=== PATIENT | male | born 1995 ===

== ENCOUNTER 2016-08-20 18:57 | Emergency (ER) | payer BC ==
[2016-08-20 19:07] VITALS: BP 128/69; PULSE 83; RESP 18; TEMP 98.4; O2SAT 100
--- NOTE | 2016-08-20 19:19 | ED PDOC ---
Upper Extremity Pain/Injury Chief Complaint (Nursing): Upper Extremity Problem/Injury Chief Complaint (Provider): right shoulder pain History Per: Patient History/Exam Limitations: no limitations Onset/Duration Of Symptoms: Mins (prior to arrival) Current Symptoms Are (Timing): Still Present Additional Complaint(s): Jamie Yang is a 20 year old male who presents to the emergency department with a complaint of right shoulder pain after he slipped off his skateboard and fell with arms extended prior to arrival. Denies any numbness, tingling, or prior incident of dislocation. PMD: none provided Past Medical History Reviewed: Historical Data, Nursing Documentation, Vital Signs Vital Signs: Last Vital Signs Temp 98.4 F 08/20/16 19:05 Pulse 83 08/20/16 19:05 Resp 18 08/20/16 19:05 BP 128/69 08/20/16 19:05 Pulse Ox 100 08/20/16 19:05 - Family History Family History: States: No Known Family Hx - Allergies Allergies/Adverse Reactions: Allergies Allergy/AdvReac Type Severity Reaction Status Date / Time Penicillins Allergy RASH Verified 08/20/16 19:09 Review of Systems ROS Statement: Except As Marked, All Systems Reviewed And Found Negative Musculoskeletal: Positive for: Shoulder Pain (right) Neurological: Negative for: Numbness (or paresthesia) Physical Exam - Reviewed Nursing Documentation Reviewed: Yes Vital Signs Reviewed: Yes - Physical Exam Appears: Positive for: Well, Non-toxic, No Acute Distress Head Exam: Positive for: ATRAUMATIC, NORMAL INSPECTION, NORMOCEPHALIC Skin: Positive for: Normal Color, Warm, Dry Neck: Positive for: Normal, Painless ROM, Supple Cardiovascular/Chest: Positive for: Regular Rate, Rhythm Respiratory: Positive for: Normal Breath Sounds. Negative for: Crackles, Rales , Rhonchi, Stridor Back: Positive for: Normal Inspection Extremity: Positive for: Normal ROM (good pronation and supination), Tenderness (right shoulder). Negative for: Other (obvious deformity) Neurologic/Psych: Positive for: Alert, process improvement specialist II-XII (intact), Oriented - ECG O2 Sat by Pulse Oximetry: 100 (RA) Pulse Ox Interpretation: Normal Medical Decision Making Medical Decision Making: Initial Impression: Right shoulder pain Initial Plan: * Motrin 600mg PO * Xray shoulder (right) * Reevaluation * Repeat Xray shoulder (right)-reduced. Time: 19:34 Reduction attempted and successful. given shoulder sling with swath and avised to have f.u with orthopedics this week. Scribe Attestation: Documented by Pau Cummings, acting as a scribe for Sruthi Hester PA-C. Provider Scribe Attestation: All medical record entries made by the Scribe were at my direction and personally dictated by me. I have reviewed the chart and agree that the record accurately reflects my personal performance of the history, physical exam, medical decision making, and the department course for this patient. I have also personally directed, reviewed, and agree with the discharge instructions and disposition. Disposition - Clinical Impression Clinical Impression: Anterior shoulder dislocation - Patient ED Disposition Is Patient to be Admitted: No Counseled Patient/Family Regarding: Studies Performed, Diagnosis, Need For Followup - Disposition Referrals: [facility] [Outside] Disposition: Routine/Home Disposition Time: 19:41 Condition: STABLE Instructions: Shoulder Dislocation (ED) Forms: [facility] ED School/Work Excuse
--- NOTE | 2016-08-21 09:28 | RAD ---
PROCEDURE: Radiographs of the Right Shoulder Two views of the right shoulder performed HISTORY: post reduction COMPARISON: Comparison made with prior study 05/17/2016 at 1915 hours FINDINGS: BONES: Normal. No fracture. JOINTS: Previously noted anterior inferior dislocated right humeral head with respect to the glenoid has been reduced SOFT TISSUES: Normal. OTHER FINDINGS: Incidental note made of a mild dextroscoliosis centered at the C5-6 level IMPRESSION: Post reduction previously noted anterior inferior dislocated right humeral head with respect to the glenoid. No definitive fracture seen.
--- NOTE | 2016-08-21 09:33 | RAD ---
PROCEDURE: Radiographs of the Right Shoulder Three views of the right shoulder performed. HISTORY: sholder injury COMPARISON: No prior study available comparison FINDINGS: BONES: Normal. No fracture. JOINTS: Anterior inferior dislocation right humeral head with respect to the glenoid SOFT TISSUES: Normal. OTHER FINDINGS: Mild dextroscoliosis centered at the T5-T6 level IMPRESSION: Anterior inferior dislocation right humeral head with respect to the glenoid
== END 2016-08-20 19:49 | disposition home or self-care (01) ==
LOC: H.ER 18:57
DX: S43.004A Unspecified dislocation of right shoulder joint, initial encounter (principal); V00.131A Fall from skateboard, initial encounter; Y93.51 Activity, roller skating (inline) and skateboarding